=== PATIENT | male | born 1965 | race Caucasian/White ===

== ENCOUNTER → 2023-11-18 | Outpatient (CLI) | payer BC ==
[2023-11-18 09:42] VITALS: BP 132/87; PULSE 66; RESP 17; TEMP 97.9
--- NOTE | 2023-11-18 09:57 | P.GSCN ---
History of Present Illness Consult date: 11/18/23 Reason for Consult: left breast mass Requesting physician: Dm Wallis History of present illness: Chester is a 58 year old male seen in consultation for Dr. Wallis with a complaint of a mass in his left breast. He had a bilateral mammogram on 08-21-23 which showed bilateral dense tissue, this was followed by a left breast ultrasound. The ultrasound showed a 3.6 by 3.6 cm lobulated lesion in the left subaerolar region. Core biopsy was recommended. He was seen in consultation by [facility] on 10-04-23 and was recommended to see a dye colorist dyer secondary to family history. His radiographs were being reviewed by [facility] physicians. His mammogram and ultrasoudn were personally reviewed with Dr. Sol. He noted the lump in his left breast in July. He states he was getting dressed and he put his shirt on and felt some fullness in the left chest wall, he noticed pain at that time. Then when he examined himself he noted that he had a lump behind his left nipple areolar complex. He denies any trauma or infection in the breast. He has some slight fullness behind the right nipple areolar complex but it is not as large. He thinks that the lesion may have increased in size since he first noticed it. He then saw his primary care doctor and had a mammogram and an ultrasound performed. The radiographic studies revealed a 3.6 x 3.6 cm lobulated lesion in the left subareolar region for which a core biopsy was recommended. The patient was seen at [facility] and evaluation was performed and genetic counseling was recommended. They have an appointment for this in December. The reason for this is positive family history of breast cancer in one sister, and a second sister with ovarian cancer. They did not say anything about a biopsy. Lamination at that institution documented 2 nodules in the left breast though only 1 was seen radiographically. Not noticed any testicular lumps or masses. The patient changed his diabetic medications at the time he noticed the lump. Losartin to protect kidneys, Farxiga, Mounjaro, Tousaeido. Caffeine: two coffee's/day nicotine: stopped 5 months ago, 1/2 PPD for 6 years Family History: sister: breast cancer bilateral mastectomy at 55 sister: ovarian and Cervical cancer and from this at the age of 63 maternal aunt: breast cancer of this maternal aunt: cancer ? type no genetic testing at this time Surgical History: gallbladder vasectomy lap-band spinal fusion neck knee scope Medical History: HTN DM neuropathy Social history: Nicotine: As above Alcohol: Social/several times a week Drugs: Negative Review of Systems - Constitutional Denies fever, Denies weight loss - EENT Eyes: denies blurred vision Ears: deny: decreased hearing, tinnitus Ears, nose, mouth and throat: Denies dysphagia - Cardiovascular Denies chest pain, Denies shortness of breath - Respiratory Denies cough, Denies 7 - Gastrointestinal Reports as per HPI, Reports constipation - Genitourinary Denies dysuria, Denies hematuria - Musculoskeletal Reports as per HPI - Integumentary Denies rash, Denies unusual bruising - Neurological Reports numbness, Denies headaches, Denies syncope - Psychiatric Reports as per HPI - Endocrine Reports fatigue - Hematologic/Lymphatic Denies easy bleeding, Denies easy bruising - Allergic/Immunologic Reports seasonal allergies Medications and Allergies Allergies Allergy/AdvReac Type Severity Reaction Status Date / Time No Known Allergies Allergy Unverified 11/18/23 09:13 Surgical - Exam - General no distress - Eyes normal ocular movement - Neck trachea midline - Respiratory normal respiratory effort, clear to auscultation - Cardiovascular Rhythm: regular - Abdomen Abdomen: soft - Integumentary normal turgor - Musculoskeletal normal gait - Psychiatric oriented to time, oriented to person, oriented to place, speech is normal, memory intact Breast Exam: Inspection: Left breast larger than right breast Palpation: Right breast: Multi positional exam patient is noted to have some increased nodularity behind the nipple areolar complex consistent with most likely gynecomastia Right axilla: No adenopathy of concern Left breast: Multi positional exam nodularity posterior to the nipple areolar complex as well as some nodularity at the 12 o'clock position, this is asymmetric to the contralateral side and is approximately 3.5 x 3.5 cm in size corresponding to what is seen radiographically on the ultrasound Left axilla: No adenopathy of concern Testicular exam: No testicular masses bilateral Results Mammogram and ultrasound reviewed personally with radiologist Dr. Sol Assessment and Plan Assessment: Impression: Bilateral breast nodularity greatest on the left Family history of breast cancer Diabetes Hypertension Plan: I would recommend ultrasound-guided core biopsy of the left breast lesion Genetic counseling Follow-up after ultrasound-guided core biopsy It is felt that the area of concern most likely represents gynecomastia, however it is asymmetric to the contralateral side, it is palpable, and he does have a family history of breast cancer. Therefore to be conservative I would recommend ultrasound-guided core biopsy. CC: Dr. Wallis
== END ==
LOC: WWCWWP 08:48
PROVIDERS: ATTEND Surgery
DX: N63.10 Unspecified lump in the right breast, unspecified quadrant (principal); N63.20 Unspecified lump in the left breast, unspecified quadrant; E11.40 Type 2 diabetes mellitus with diabetic neuropathy, unspecified; I10 Essential (primary) hypertension; Z80.3 Family history of malignant neoplasm of breast; Z87.891 Personal history of nicotine dependence; Z79.4 Long term (current) use of insulin; Z79.899 Other long term (current) drug therapy; Z79.85 Long-term (current) use of injectable non-insulin antidiabetic drugs; Z79.84 Long term (current) use of oral hypoglycemic drugs

== ENCOUNTER → 2023-11-23 | Day surgery (SDC) | payer BC ==
--- NOTE | 2023-11-28 08:42 | MM ---
Reason for Exam: Post Procedure Mammogram. Tissue Density: Left: The breasts are heterogeneously dense, which may obscure small masses. Pathology Description: Location: retroareolar. Marker Left Behind. Needle Type: Mammotome Cores: 5 Gauge: 13 The procedure of ultrasound guided core biopsy was explained to the patient. Benefits, alternatives, and risks were discussed. An informed consent was then obtained. Masslike lateral subareolar heterogeneous area in the left breast is targeted for biopsy. Gynecomastia is suspected. The patient was placed in supine positioning for imaging and for the procedure. The overlying skin was prepped and draped in usual sterile fashion. Lidocaine was used as anesthetic into the skin followed by lidocaine/epinephrine into the subcutaneous tissue up to area of concern in the left breast. Under ultrasound guidance, a 13-gauge vacuum-assisted mammotome biopsy gun was used to obtain 5 core samples. Following this, a HydroMark butterfly clip was left in lesion. The patient tolerated the procedure well without any immediate complication. The patient was kept in the radiology department for short stay after the procedure and then discharged home in stable condition. Postprocedure mammogram: The patient was transferred to mammography for physician ordered post procedure mammogram for clip placement verification. Post procedure mammogram shows the clip embedded within the dense subareolar tissue. IMPRESSION: Successful, uncomplicated ultrasound guided core biopsy of area of concern in the lateral subareolar left breast. Gynecomastia suspected. Full pathology results to follow. Pathology Results: Result: Benign, Gynecomastia. Pathology and radiology were reviewed. Findings are concordant. LEFT BREAST, LATERAL SUBAREOLAR, ULTRASOUND GUIDED CORE BIOPSY: Hypocellular and edematous fibrous tissue with few ducts having usual ductal hyperplasia, compatible with gynecomastia. Overall Assessment: Benign Assessment: MG diagnostic mammo LT wo CAD. - Left: Benign, BI-RAD 2. Management: Surgical Consultation of the left breast. If surgical treatment is desired. Electronically signed and approved by: Rosa Berumen M.D. Radiologist
== END ==
LOC: RADUSWWP 10:03
PROVIDERS: ATTEND Surgery
DX: N62 Hypertrophy of breast (principal)
CPT/HCPCS: 88305; 77065; 19083; A4648

== ENCOUNTER → 2023-12-01 | Outpatient (CLI) | payer BC ==
--- NOTE | 2023-12-01 11:41 | P.PN ---
Subjective Progress Note Date: 12/01/23 Principal diagnosis: mass left breast Chester is status post left breast core biopsy on 11-23-23. The findings are compatible with gynecomastia. He tolerated the procedure without difficulty. At this time he does not want any surgical intervention. Objective - Vital Signs Vital signs: Vital Signs Temp 98.7 F 12/01/23 11:19 Pulse 57 L 12/01/23 11:19 Resp 16 12/01/23 11:19 BP 112/75 12/01/23 11:19 Pulse Ox 96 12/01/23 11:19 FiO2 Intake & Output 11/30/23 12/01/23 12/01/23 18:59 06:59 18:59 Weight 104.326 kg - Constitutional General appearance: Present: cooperative - EENT Eyes: Present: EOMI - Respiratory Respiratory: bilateral: CTA - Cardiovascular Heart sounds: normal: S1, S2 - Integumentary Integumentary Comment(s): Mild ecchymosis at biopsy site left breast No evidence of hematoma or infection - Musculoskeletal Musculoskeletal: Present: gait normal - Psychiatric Psychiatric: Present: A&O x's 3, appropriate affect, intact judgment & insight Assessment and Plan Assessment: Plan Biopsy-proven left breast gynecomastia Plan: Repeat bilateral breast ultrasound in 6 months with physician exam at that time The patient does not want to have any operative intervention at this time he will follow-up sooner if this grows or becomes more painful or he has any concerns or questions CC: Dr. Wallis
[2023-12-01 12:09] VITALS: BP 112/75; PULSE 57; RESP 16; TEMP 98.7
== END ==
LOC: WWCWWP 10:54
PROVIDERS: ATTEND Surgery
DX: N62 Hypertrophy of breast (principal); N63.20 Unspecified lump in the left breast, unspecified quadrant

== ENCOUNTER → 2024-06-04 | Outpatient (CLI) | payer BC ==
--- NOTE | 2024-06-04 10:55 | USB ---
Reason for Exam: Follow-up at short interval from prior study. Patient History: 11/23/2023, Benign US biopsy breast VAD LT on the left side. Technique: Method: Targeted. Prior Study Comparison: 11/23/2023 Left MG diagnostic mammo LT wo CAD., [facility]. Findings: The axilla of both breasts and the retroareolar of both breasts were scanned. A complete US of all four quadrants of the breast and retro-areolar region were reviewed. Previously biopsied masslike area left 3:00 position is redemonstrated. This was proven to represent gynecomastia. Masslike area currently measures 4.1 x 2.0 cm versus 4.2 x 1.5 cm previously. Right breast is unremarkable. Overall Assessment: Benign, BI-RAD 2 Management: Diagnostic Breast Ultrasound of the left breast in 6 months. A clinical breast exam by your physician is recommended on an annual basis and results should be correlated with mammographic findings. This exam should not preclude additional follow-up of suspicious palpable abnormalities. Results were given to the patient verbally at the time of exam. [facility], , 06/04/2024 10:53 AM. Electronically signed and approved by: Romeo Moreno M.D. Radiologis
== END | disposition home or self-care (01) ==
LOC: RADUSWWP 10:23
PROVIDERS: ATTEND Surgery
DX: N63.0 Unspecified lump in unspecified breast (principal); N62 Hypertrophy of breast

== ENCOUNTER → 2024-06-07 | Outpatient (CLI) | payer BC ==
[2024-06-07 10:21] VITALS: BP 120/82; PULSE 63; RESP 15; TEMP 98.9
--- NOTE | 2024-06-07 10:24 | P.PN ---
Subjective Progress Note Date: 06/07/24 Principal diagnosis: gynecomastia 06-07-24 left breast gynecomastia Requesting physician: Dm Wallis History of present illness: Chester is a 59 year old male seen in consultation for Dr. Wallis on 11-18-23 with a complaint of a mass in his left breast. He had a bilateral mammogram on 08-21-23 which showed bilateral dense tissue, this was followed by a left breast ultrasound. The ultrasound showed a 3.6 by 3.6 cm lobulated lesion in the left subaerolar region. Core biopsy was recommended. He was seen in consultation by [facility] on 10-04-23 and was recommended to see a die maker stamping secondary to family history. His radiographs were being reviewed by [facility] physicians. His mammogram and ultrasound were personally reviewed with Dr. Sol. He noted the lump in his left breast in July. He states he was getting dressed and he put his shirt on and felt some fullness in the left chest wall, he noticed pain at that time. Then when he examined himself he noted that he had a lump behind his left nipple areolar complex. He denies any trauma or infection in the breast. He has some slight fullness behind the right nipple areolar complex but it is not as large. He thinks that the lesion may have increased in size since he first noticed it. He then saw his primary care doctor and had a mammogram and an ultrasound performed. The radiographic st udies revealed a 3.6 x 3.6 cm lobulated lesion in the left subareolar region for which a core biopsy was recommended. The patient was seen at [facility] and evaluation was performed and genetic counseling was recommended. They have an appointment for this in December. The reason for this is positive family history of breast cancer in one sister, and a second sister with ovarian cancer. They did not say anything about a biopsy. examination at that institution documented 2 nodules in the left breast though only 1 was seen radiographically. Not noticed any testicular lumps or masses. The patient changed his diabetic medications at the time he noticed the lump. Losartin to protect kidneys, Juliocesar Aguilaunbeverly, Tojarod. left breast core biopsy on 11-23-23 findings compatible with gynecomastia bilateral breast ultrasound on 06-04-24 BIRAD 2, personally reviewed lesion in the left breast stable, repeat left breast ultrasound in 6 months He states the area in the left breast is less sore he has not noted any new lumps masses or nodules of concern He is not complaining of any testicular lumps or masses Caffeine: two coffee's/day nicotine: stopped 5 months ago, 1/2 PPD for 6 years Family History: sister: breast cancer bilateral mastectomy at 55 sister: ovarian and Cervical cancer and from this at the age of 63 maternal aunt: breast cancer of this maternal aunt: cancer ? type no genetic testing at this time Surgical History: gallbladder vasectomy lap-band spinal fusion neck knee scope Medical History: HTN DM neuropathy Social history: Nicotine: As above Alcohol: Social/several times a week Drugs: Negative Review of Systems - Constitutional Denies fever, Denies weight loss - EENT Eyes: denies blurred vision Ears: deny: decreased hearing, tinnitus Ears, nose, mouth and throat: Denies dysphagia - Cardiovascular Denies chest pain, Denies shortness of breath - Respiratory Denies cough, Denies 7 - Gastrointestinal Reports as per HPI, Reports constipation - Genitourinary Denies dysuria, Denies hematuria - Musculoskeletal Reports as per HPI - Integumentary Denies rash, Denies unusual bruising - Neurological Reports numbness, Denies headaches, Denies syncope - Psychiatric Reports as per HPI - Endocrine Reports fatigue - Hematologic/Lymphatic Denies easy bleeding, Denies easy bruising - Allergic/Immunologic Reports seasonal allergies Medications and Allergies Allergies Allergy/AdvReac Type Severity Reaction Status Date / Time No Known Allergies Allergy Unverified 11/18/23 09:13 Objective - Constitutional General appearance: Present: cooperative - EENT Eyes: Present: EOMI ENT: Present: hearing grossly normal - Neck Neck: Present: normal ROM - Respiratory Respiratory: bilateral: CTA - Cardiovascular Rhythm: regular Heart sounds: normal: S1, S2 - Integumentary Integumentary: Present: normal turgor - Musculoskeletal Musculoskeletal: Present: gait normal - Psychiatric Psychiatric: Present: A&O x's 3, appropriate affect, intact judgment & insight - Additional findings Additional findings: Breast Exam: Inspection: Left breast larger than right breast Palpation: Right breast: Multi positional exam patient is noted to have some increased nodularity behind the nipple areolar complex consistent with most likely gynecomastia Right axilla: No adenopathy of concern Left breast: Multi positional exam nodularity posterior to the nipple areolar complex as well as some nodularity at the 12 o'clock position, this is asymmetric to the contralateral side and is approximately 3.5 x 3.5 cm in size corresponding to what is seen radiographically on the ultrasound Left axilla: No adenopathy of concern Left shoulder which patient states has been there for many years without change he is being followed by his primary care doctor with respect to this Assessment and Plan Assessment: Impression: Bilateral breast nodularity greatest on the left Family history of breast cancer Diabetes Hypertension Plan: ultrasound in 6 months left breast with examination at that time Left chest wall nevus being followed by primary care doctor Patient to follow-up sooner any questions or concerns Patient has not yet had genetic counseling we have again discussed this and he is going to consider it Genetic counseling CC: Dr. Wallis
== END ==
LOC: WWCWWP 09:33
PROVIDERS: ATTEND Surgery
DX: N62 Hypertrophy of breast (principal); N63.10 Unspecified lump in the right breast, unspecified quadrant; N63.20 Unspecified lump in the left breast, unspecified quadrant; I10 Essential (primary) hypertension; E11.40 Type 2 diabetes mellitus with diabetic neuropathy, unspecified; Z80.3 Family history of malignant neoplasm of breast; Z87.891 Personal history of nicotine dependence; Z79.899 Other long term (current) drug therapy; Z79.84 Long term (current) use of oral hypoglycemic drugs; Z79.85 Long-term (current) use of injectable non-insulin antidiabetic drugs; Z79.4 Long term (current) use of insulin